=== PATIENT | male | born 1975 | race Hispanic/Latino ===

== ENCOUNTER 2017-09-28 20:02 | Observation (INO) | payer OTHER ==
--- NOTE | 2017-09-28 21:35 | ED PDOC ---
HPI: Back Time Seen by Provider: 09/28/17 20:23 Chief Complaint (Nursing): Lower Extremity Problem/Injury Chief Complaint (Provider): Back Pain History Per: Patient History/Exam Limitations: no limitations Onset/Duration Of Symptoms: Days (x21), Gradual Current Symptoms Are (Timing): Still Present Additional Complaint(s): 42 y/o male with a PMHx of HTN and left radial nerve surgery presents to the ED complaining of non-radiating back pain, gradual onset three weeks ago. Patient states pain is located in the left-sided lumbar area that worsens with movement. Patient reports that about one week ago, he started to get numbness in the lower extremities especially in the inner thighs radiating down the leg to the first two toes bilaterally. Patient states starting four days ago, whenever he has to urinate he always has to go right away and states of little incontinence prior to reaching the restroom. Patient reports of doing a lot of heavy lifting at work. In addition, patient states he was seen at his PMD and was told to come here for further evaluation. Denies bowel incontinence, weakness in legs, trauma, injury and taking pain medications prior to arrival. PMD: [facility] in [place], [place]. Past Medical History Reviewed: Historical Data, Nursing Documentation, Vital Signs Vital Signs: Last Vital Signs Temp 97.8 F 09/28/17 20:11 Pulse 70 09/28/17 20:11 Resp 16 09/28/17 20:11 BP 144/82 09/28/17 20:11 Pulse Ox 98 09/28/17 20:11 - Medical History PMH: HTN - Surgical History Other surgeries: Left Radial Nerve Surgery - Family History Family History: States: Diabetes, Hypertension - Social History Current smoker - smoking cessation education provided: Yes (Currently vapes not cigarettes) Ex-Smoker (has not smoked in the last 12 months): Yes (Stopped smoking cigarettes 2 years ago) Alcohol: Social Drugs: Other (Marijuana occasionally) - Home Medications Home Medications: Ambulatory Orders Medication Instructions Recorded Acetaminophen/Diphenhydramine 1 tab PO HS PRN 09/28/17 [Tylenol Pm Ex-Strength Caplet] - Allergies Allergies/Adverse Reactions: Allergies Allergy/AdvReac Type Severity Reaction Status Date / Time Penicillins Allergy RASH Verified 09/28/17 20:11 Review of Systems ROS Statement: Except As Marked, All Systems Reviewed And Found Negative (as per HPI) Genitourinary Male: Positive for: Incontinence (Positive urinary incontinence and urgency. No bowel incontinence) Musculoskeletal: Positive for: Back Pain (low) Neurological: Positive for: Numbness (lower extremity). Negative for: Weakness (in legs) Physical Exam - Reviewed Nursing Documentation Reviewed: Yes Vital Signs Reviewed: Yes - Physical Exam Appears: Positive for: Non-toxic, No Acute Distress Head Exam: Positive for: ATRAUMATIC, NORMOCEPHALIC Skin: Positive for: Warm, Dry Eye Exam: Positive for: EOMI, PERRL ENT: Positive for: Normal ENT Inspection, Pharynx Is (clear) Neck: Positive for: Painless ROM, Supple Cardiovascular/Chest: Positive for: Regular Rate, Rhythm. Negative for: Murmur Respiratory: Positive for: Normal Breath Sounds. Negative for: Respiratory Distress Gastrointestinal/Abdominal: Positive for: Soft. Negative for: Tenderness Back: Positive for: Normal Inspection, Other (Mild tenderness to palpation to the left lumbar area. No bilateral straight leg raise.). Negative for: L CVA Tenderness, R CVA Tenderness, Vertebral Tenderness (midline) Extremity: Positive for: Other (Decreased light touch sensation in the inner thighs, inner lower legs and medial parts of both feet. Subtle decreased strength in the left dorsal flexion. EHL patella reflex and bilateral Pavinsky reflex or normal bilaterally. ). Negative for: Pedal Edema, Calf Tenderness, Deformity Lymphatic: Negative for: Adenopathy Neurologic/Psych: Positive for: Alert, trouble locater II-XII (intact), Oriented, Motor/ Sensory Deficits (decreased light touch bilateral medial lower extremities and feet) - Laboratory Results Result Diagrams: 09/28/17 22:38 09/28/17 22:38 - ECG O2 Sat by Pulse Oximetry: 98 (RA) Pulse Ox Interpretation: Normal Medical Decision Making Medical Decision Making: Time: 2058 Impression: Back Pain with possible cudaequina syndrome. Plan: -- CT Lumbar Spine w/o contrast -- Urine Drug Screen -- ED Urine Dipstick Time: 2207 CT LUMBAR SPINE RESULTS FINDINGS: The lumbar vertebrae are well aligned. There is no subluxation. No acute fractures. No paravertebral soft tissue swelling. No large disc herniation or bony central canal or neuroforaminal stenosis. IMPRESSION: No evidence for acute fracture or subluxation of the lumbar spine. Thank you for allowing us to participate in the care of your patient. Dictated and Authenticated by: Lalo Nye MD 09/28/2017 10:08 PM Eastern Time ([place] & [place]) Labs unremarkable DW Dr Persaud Neurology DW Dr López Med Service Hospitalized for back pain and symptoms of cauda equina ___ Scribe Attestation: Documented by Clarence Sutherland acting as a scribe for Dr. Randa Pardo. Provider Scribe Attestation: All medical record entries made by the Scribe were at my direction and personally dictated by me. I have reviewed the chart and agree that the record accurately reflects my personal performance of the history, physical exam, medical decision making, and the department course for this patient. I have also personally directed, reviewed, and agree with the discharge instructions and disposition. Disposition - Clinical Impression Clinical Impression: Intractable back pain, Leg numbness Counseled Patient/Family Regarding: Studies Performed, Diagnosis - Disposition Disposition Time: 23:00 Condition: FAIR - Pt Status Changed To: Hospital Disposition Of: Observation - POA Present On Arrival: None
[2017-09-28 22:40] LABS: BASO # 0.1 K/uL (0.0-0.2); BASO % 0.8 % (0.0-2.0); EOS # 0.2 K/uL (0.0-0.7); EOS % 1.5 % (0.0-4.0); HEMOGLOBIN 15.7 g/dL (12.0-18.0); LYMPH # 3.1 K/uL (1.0-4.3); LYMPH % 27.2 % (20.0-40.0); MEAN CELL VOLUME 91.8 fl (80.0-94.0); MEAN CORPUSCULAR HEMOGLOBIN 30.5 pg (27.0-31.0); MEAN CORPUSCULAR HGB CONC 33.2 g/dL (33.0-37.0); MEAN PLATELET VOLUME 9.2 fl (7.2-11.7); MONO # 0.8 K/uL (0.0-0.8); NEUT # 7.3 K/uL (1.8-7.0); NEUT % 63.5 % (50.0-75.0); NRBC % 0.1 % (0.0-0.0); RBC 5.16 Mil/uL (4.40-5.90); RED CELL DISTRIBUTION WIDTH 12.8 % (11.5-14.5); WHITE BLOOD COUNT 11.5 K/uL (4.8-10.8)
[2017-09-28 22:53] LABS: ALB/GLOB RATIO 1.4 (1.0-2.1); ALBUMIN 4.2 g/dL (3.5-5.0); ALT/SGPT 44 U/L (21-72); AST/SGOT 33 U/L (17-59); BLOOD UREA NITROGEN 19 mg/dl (9-20); CALCIUM 9.6 mg/dL (8.4-10.2); GFR AFRICAN-AMERICAN > 60; GFR NON-AFRICAN AMERICAN > 60
[2017-09-28 23:06] LABS: BARBITURATES, UR NEGATIVE (NEGATIVE); BENZODIAZEPINES, UR NEGATIVE (NEGATIVE); OPIATES, UR NEGATIVE (NEGATIVE); PHENCYCLIDINE, UR NEGATIVE (NEGATIVE)
[2017-09-29] MEDS ORDERED: Gadodiamide 287 MG/ML VIAL (15ML) IV ONE ×2 (10:16→10:46)
--- NOTE | 2017-09-29 10:21 | CT ---
Date of service: 09/28/2017 PROCEDURE: CT Lumbar Spine without contrast HISTORY: low back pain with signs of cauda equina COMPARISON: None available. TECHNIQUE: Axial computed tomography images were obtained of the lumbar spine without the use of intravenous contrast. Coronal and sagittal reformatted images were created and reviewed. Radiation dose: Total exam DLP = 1088.16 mGy-cm. This CT exam was performed using one or more of the following dose reduction techniques: Automated exposure control, adjustment of the mA and/or kV according to patient size, and/or use of iterative reconstruction technique. FINDINGS: VERTEBRAE: Unremarkable. No fracture. Normal alignment. No spondylolisthesis. DISCS/SPINAL CANAL/NEURAL FORAMINA: L1-2: Unremarkable. L2-3: Circumferential disc bulging is appreciated without significant stenosis of the central canal or neural foramina bilaterally. L3-4: Circumferential disc bulging is limited without stenosis resulting. L4-5: There is a generalized circumferential disc bulge combined with ligamentum flavum hypertrophy resulting in mild central canal stenosis, concentrated at the lateral recesses symmetrically. No significant neural foraminal stenosis bilaterally. L5-S1: Unremarkable. PARASPINAL SOFT TISSUES: Unremarkable. OTHER FINDINGS: None. IMPRESSION: There is no bony central canal or neural foraminal stenosis of any kind. No gross disc herniation. Mild central stenosis results from generalized circumferential disc bulging at L4-5. Lesser disc bulging is seen more cephalad in the lumbar spine without stenosis. Follow-up MRI of the thoraco lumbar spine is recommended if there remains clinical concern for potential cauda equina syndrome. Concordant preliminary report from [facility], 09/28/2017.
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
--- NOTE | 2017-09-29 14:08 | MRI ---
Date of service: 09/29/2017 PROCEDURE: MR LUMBAR SPINE WITH AND WITHOUT CONTRAST HISTORY: back pain leg numbness progressive COMPARISON: None available. TECHNIQUE: Multiecho multiplanar sequences were performed through the lumbar spine with and without the use of intravenous contrast. FINDINGS: Normal lumbar lordosis. Vertebral body heights are preserved. Marrow signal unremarkable. Conus medullaris unremarkable at the level of L1. Paraspinal soft tissues are unremarkable. No abnormal enhancement. T12-L1: No disc herniation, spinal canal stenosis or neural foraminal narrowing. L1-2: No disc herniation, spinal canal stenosis or neural foraminal narrowing. L2-3: No disc herniation, spinal canal stenosis or neural foraminal narrowing. L3-4: No disc herniation, spinal canal stenosis or neural foraminal narrowing. L4-5: No disc herniation is apparent. Bilateral facet joint degenerative arthropathy appears moderate and encroaches bilateral lateral recesses with borderline central canal stenosis. Borderline bilateral neural foraminal stenosis results as well. L5-S1: No disc herniation, spinal canal stenosis or neural foraminal narrowing. OTHER FINDINGS: None. IMPRESSION: 1. No abnormal epidural or intrathecal enhancement appreciated. 2. Degenerative facet arthropathy encroaches the bilateral lateral recesses at L4-5 with a borderline central stenosis appreciated overall. Borderline bilateral neural foraminal stenosis bilaterally. 3. No disc herniation throughout the examination.
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
[2017-09-29 15:32] VITALS: O2SAT 98
[2017-09-29 16:16] VITALS: BP 159/99; PULSE 67; RESP 18; TEMP 97.6
[2017-09-29 21:55] LABS: FOLATE 19.9 ng/mL
== END 2017-09-29 17:21 | disposition home or self-care (01) ==
LOC: H.ER 20:02 → H.ERHOLD 23:38 → H.MEDSURG1 09-29 01:50
PROVIDERS: ADMIT Family Medicine; ATTEND Family Medicine
DX: M54.16 Radiculopathy, lumbar region (principal); R20.0 Anesthesia of skin; I10 Essential (primary) hypertension; R39.15 Urgency of urination; F17.200 Nicotine dependence, unspecified, uncomplicated; F12.90 Cannabis use, unspecified, uncomplicated; Z88.0 Allergy status to penicillin
CPT/HCPCS: 72131; 72158; 80053; 80320; 80324; 80345; 80346; 80349; 80353; 80358; 80361; 82607; 82746; 83735; 83992; 84100; 85025; 99285; A9579; G0378; J1885